=== PATIENT | male | born 1975 | race Caucasian/White ===

== ENCOUNTER 2019-04-18 14:07 | Emergency (ER) | payer BC ==
[~2019-04-18] VITALS: Ht 175.3 cm; Wt 93.0 kg
[2019-04-18 14:26] VITALS: BP 148/92
[2019-04-18] MEDS ORDERED: METHADOSE40 MG (14:30)
[2019-04-18] MEDS ORDERED: KEFLEX500 M1 PO (15:06)
[2019-04-18] MEDS ORDERED: BACTRIM DS TAB1 EACH PO (15:06)
== END 2019-04-18 15:14 | disposition home or self-care (01) ==
LOC: M.ERS 14:07
DX: L03.115 Cellulitis of right lower limb (principal); F17.200 Nicotine dependence, unspecified, uncomplicated